=== PATIENT | female | born 1955 | race Caucasian/White ===

== ENCOUNTER 2018-06-01 17:04 | Inpatient (IN) | payer OTHER ==
[2018-06-01 18:08] VITALS: BMI 23.7
--- NOTE | 2018-06-01 20:56 | HP ---
COWS - Scale Resting Pulse: 0= [place] 80 or Below Sweatin=Flushed/Facial Moisture Restless Observation: 1= Difficult to Sit Still Pupil Size: 5= Only Rim of [place] Seen (Pupils = 10 mm) Bone or Joint Aches: 1= Mild Discomfort (Increased r/t withdrawal) Runny Nose/ Eye Tearin= Runny Nose/Eyes GI Upset > 30mins: 0= None Tremor Observation: 2= Slight Tremor Visible Yawning Observation: 1= 1-2x During Session Anxiety or Irritability: 2=Irritable/Anxious Goose Flesh Skin: 0=Smooth Skin COWS Score: 16 CIWA Score - Admission Criteria [facility] Guidelines: Admission for Medically Managed Detox: Requires at least one of the followin. CIWA greater than 12 2. Seizures within the past 24 hours 3. Delirium tremens within the past 24 hours 4. Hallucinations within the past 24 hours 5. Acute intervention needed for co occurring medical disorder 6. Acute intervention needed for co occurring psychiatric disorder 7. Severe withdrawal that cannot be handled at a lower level of care (continued vomiting, continued diarrhea, abnormal vital signs) requiring intravenous medication and/or fluids 8. Admission ROS [facility] Chief Complaint: Having withdrawal from opiates. Allergies/Adverse Reactions: Allergies Allergy/AdvReac Type Severity Reaction Status Date / Time ampicillin Allergy Verified 06/01/18 22:44 azithromycin Allergy Verified 06/01/18 22:44 Penicillins Allergy Verified 06/01/18 22:44 History of Present Illness: Here for heroin detox. Has been receiving opiate pain relievers off and on since age 14. (Nothing since [age]) Started heroin at age 37. Has been starting and stopping over the years. Hx of seizures. Cause of seizures are unknown and not on any seizure medication. Hx: overdose in 2018. Denies alcohol or beer. Hx Asthma (denies recent exacerbation) and COPD. Chronic back and hip pain. Uses a cane for support. (L) knee pain r/t recent fall. On prescription alprazolam for anxiety/panic disorder. Alprazolam is not available, so will order Valium 2.5 mg PO BID. Patient Name: Chani Roberts Date: 1955 Address: [address] [place] [address] Sex: Female Rx Written Rx Dispensed Drug Quantity Days Supply Prescriber Name 05/28/2018 05/30/2018 alprazolam 1 mg tablet 60 30 MD Latanya, Srini 04/30/2018 05/02/2018 alprazolam 1 mg tablet 60 30 MD Latanya, Srini 04/02/2018 04/02/2018 alprazolam 1 mg tablet 60 30 MD Latanya, Srini 03/05/2018 03/05/2018 alprazolam 1 mg tablet 60 30 MD Latanya, Srini 02/21/2018 02/21/2018 oxycodone-acetaminophen 10-325 mg tab 12 3 Stephen Sandoval 01/21/2018 01/21/2018 oxycodone-acetaminophen 10-325 mg tab 12 3 Stephen Sandoval DDS 01/20/2018 01/20/2018 alprazolam 1 mg tablet 60 30 MD Latanya, Srini 12/11/2017 12/11/2017 alprazolam 1 mg tablet 60 30 MD Latanya, Srini 11/06/2017 11/06/2017 alprazolam 1 mg tablet 60 30 MD Latanya, Srini 10/01/2017 10/01/2017 alprazolam 1 mg tablet 60 30 MD Latanya, Srini Exam Limitations: No Limitations - Ebola screening Have you traveled outside of the country in the last 21 days: No (N) Have you had contact with anyone from an Ebola affected area: No Have you been sick,other than usual withdrawal symptoms: No Do you have a fever: No - Review of Systems Constitutional: Diaphoresis EENT: reports: Blurred Vision, Dental Problems (Recent dental implants and tooth removal. Has an appointment for early June. Taking Ibuprofen for pain.) Respiratory: reports: SOB with Exertion, Other (Hx Asthma and COPD - denies recent exacerbation) Cardiac: reports: Other (Hx murmur) : reports: No Symptoms Reported Musculoskeletal: reports: Back Pain (Consistent back pain, multiple areas; sometimes sharp, dull, or achy. Pain at this time is a "3".), Joint Pain ( Chronic arthritic hip pain usually dull. (R) hip is worse than (L). Uses a cane. ), Other ((L) knee pain r/t fall 2 weeks ago. States was examined in ER and had an xray which was negative) Integumentary: reports: No Symptoms Reported (States bruises easily.) Neuro: reports: Headache, Numbness (fingers both hands), Seizure (None recently. ), Tremors Endocrine: reports: No Symptoms Reported Hematology: reports: Easy Bruising Psychiatric: reports: Judgement Intact, Orientated x3, Agitated, Anxious, Depressed (Denies thoughts of harming self or others.) Patient History - PPD History Previous Implant?: Yes (years ago) Documented Results: Negative w/o proof Implanted On Prior R Admission?: No PPD to be Administered?: Yes - Smoking Cessation Smoking history: Current every day smoker Have you smoked in the past 12 months: Yes Aproximately how many cigarettes per day: 4 Hx Chewing Tobacco Use: No Initiated information on smoking cessation: Yes 'Breaking Loose' booklet given: 06/01/18 - Substance & Tx. History Hx Substance Use: Yes Substance Use Type: Heroin Hx Substance Use Treatment: No (Received treatment in an ER but has tried detoxing on own) - Substances Abused Heroin Route: SNIFF Frequency: Daily Amount used: 3 BAGS Age of first use: 32 Admission Physical Exam S - Vital Signs Vital Signs: Vital Signs - 24 hr 06/01/18 18:06 Temperature 97.7 F Pulse Rate 79 Respiratory 18 Rate Blood Pressure 111/74 - Physical General Appearance: Yes: Nourished, Appropriately Dressed, Tremorous, Sweating, Anxious HEENTM: Yes: EOMI, Hearing grossly Normal, Normocephalic, STEVE (Pupils = 10 mm) , Pharynx Normal, Rhinorrhea Respiratory: Yes: Lungs Clear, Normal Breath Sounds, No Respiratory Distress Neck: Yes: No masses,lesions,Nodules, Supple Breast: Yes: Breast Exam Deferred Cardiology: Yes: Regular Rhythm, Regular Rate, S1, S2, Murmur (Soft murmur noted. No SOB, edema.) Abdominal: Yes: Non Tender, Flat, Soft, Increased Bowel Sounds Genitourinary: Yes: Within Normal Limits Back: Yes: Other (Curvatures of spine) Musculoskeletal: Yes: Gait Steady (w/ use of cane) Extremities: Yes: Normal Capillary Refill, Normal Range of Motion, Non-Tender, Tremors Neurological: Yes: backup administrator II-XII NML intact, Fully Oriented, Alert, Motor Strength 5/5, Normal Response Integumentary: Yes: Normal Color, Dry, Warm Lymphatic: Yes: Within Normal Limits - Diagnostic (1) Opioid dependence with withdrawal Current Visit: Yes Status: Acute (2) Bone pain Current Visit: Yes Status: Chronic (3) JESSENIA (generalized anxiety disorder) Current Visit: Yes Status: Chronic Comment: On prescribed alprazolam. (4) Nicotine dependence, uncomplicated Current Visit: Yes Status: Chronic Qualifiers: Nicotine product type: cigarettes Qualified Code(s): F17.210 - Nicotine dependence, cigarettes, uncomplicated (5) COPD (chronic obstructive pulmonary disease) Current Visit: Yes Status: Chronic Qualifiers: COPD type: unspecified COPD Qualified Code(s): J44.9 - Chronic obstructive pulmonary disease, unspecified (6) Murmur, cardiac Current Visit: Yes Status: Acute Cleared for Admission [facility] - Detox or Rehab [facility] Level of Care: Medically Managed Detox Regimen/Protocol: Methadone [facility] Breath Alcohol Content Breath Alcohol Content: 0 Urine Pregancy Test - Result Urine Test Results: Negative- NO Line Present Urine Drug Screen - Results Drug Screen Negative: No Urine Drug Screen Results: THC-Marijuana, OPI-Opiates, BAR-Barbiturates, BZO- Benzodiazepines, OXY-Oxycodone
[2018-06-01] MEDS ORDERED: METHADONE HCL 10 MG TABLET (FOR DETOX USE ONLY) PO ONE ×2 (21:30→23:00)
[2018-06-01] MEDS ORDERED: ACETAMINOPHEN 325 MG TABLET (FP) PO PRN (21:30)
[2018-06-01] MEDS ORDERED: NICOTINE POLACRILEX 2 MG GUM BC PRN (21:30)
[2018-06-01] MEDS ORDERED: MAGNESIUM HYDROX 2400MG/30ML ORAL SUSPENSION 30 ML CUP PO PRN (21:30)
[2018-06-01] MEDS ORDERED: MAGNESIUM CITRATE 300 ML BOTTLE PO PRN (21:30)
[2018-06-01] MEDS ORDERED: MENTHOL/PHENOL 1 EACH UD MM PRN (21:30)
[2018-06-01] MEDS ORDERED: MAG HYDROX/AL HYDROX/SIMETH 30 ML UNIT-DOSE CUP PO PRN (21:30)
[2018-06-01] MEDS ORDERED: LOPERAMIDE HCL 2 MG CAPSULE PO PRN (21:30)
[2018-06-01] MEDS ORDERED: ALPRAZolam 0.25 MG TABLET PO SCH (22:00)
[2018-06-01] MEDS ORDERED: PATIENT'S OWN MEDICATION (NON-FORMULARY) (Alprazolam [Xanax] 1 MG) PO SCH (22:45)
[2018-06-01] MEDS: THIAMINE HCL 100 MG TABLET (FP) PO SCH (23:04)
[2018-06-01] MEDS: diazePAM 5 MG TABLET PO SCH (23:16)
[2018-06-02 01:49] LABS: URINE APPEARANCE CLEAR; URINE BILIRUBIN NEGATIVE (<2.0 mg/dL); URINE COLOR DKYELLOW; URINE GLUCOSE (UA) NEGATIVE (NEGATIVE); URINE KETONE TRACE (NEGATIVE); URINE LEUK ESTERASE 1+ (NEGATIVE); URINE NITRITE NEGATIVE (NEGATIVE); URINE PROTEIN NEGATIVE (NEGATIVE)
[2018-06-02 01:56] LABS: EPI CELLS RARE /HPF (FEW); URINE BACTERIA RARE /hpf (NONE SEEN); URINE HYALINE CAST 1 /lpf; URINE MUCUS RARE
[2018-06-02] MEDS: IBUPROFEN 400 MG TABLET (FP) PO PRN (08:35)
[2018-06-02] MEDS ORDERED: METHADONE HCL 10 MG TABLET (FOR DETOX USE ONLY) PO ONE (10:00)
[2018-06-02] MEDS: PRENATAL VITAMINS W/ FOLIC ACID TABLET (FP) PO SCH (10:37)
[2018-06-02] MEDS: diazePAM 5 MG TABLET PO SCH ×2 (10:37→22:20)
[2018-06-02] MEDS: NICOTINE 7 MG/24 HOURS TOPICAL PATCH TD SCH (10:42)
[2018-06-02 11:03] LABS: HEMATOCRIT 42.1 % (32.4-45.2); HEMOGLOBIN 14.9 GM/dL (10.7-15.3); MCH 31.6 pg (25.7-33.7); MCHC 35.3 g/dl (32.0-36.0); MEAN CELL VOLUME 89.4 fl (80-96); MEAN PLT VOLUME 9.6 fl (7.5-11.1); PLATELET COUNT 222 K/MM3 (134-434); RBC 4.72 M/mm3 (3.60-5.2); RDW 12.6 % (11.6-15.6); WHITE BLOOD COUNT 5.1 K/mm3 (4.0-10.0)
[2018-06-02 11:22] LABS: ALBUMIN 3.5 g/dl (3.4-5.0); ALK PHOS 57 U/L (45-117); ANION GAP 5 MMOL/L (8-16); BILIRUBIN,TOTAL 0.8 mg/dL (0.2-1); BLOOD UREA NITROGEN 18 mg/dL (7-18); CALCIUM 8.6 mg/dL (8.5-10.1); CHLORIDE 107 mmol/L (98-107); CO2 29 mmol/L (21-32); CREATININE 0.9 mg/dL (0.55-1.3); GLUCOSE,RANDOM 96 mg/dL (74-106); SGOT/AST 19 U/L (15-37); SGPT/ALT 23 U/L (13-61); SODIUM 141 mmol/L (136-145); TOT PROT 6.4 g/dl (6.4-8.2)
--- NOTE | 2018-06-02 12:39 | PN ---
[facility] COWS - Scale Resting Pulse: 1= [place] 81-100 Sweatin=Flushed/Facial Moisture Restless Observation: 1= Difficult to Sit Still Pupil Size: 0= Normal to Room Light Bone or Joint Aches: 2= Severe Diffuse Aches Runny Nose/ Eye Tearin= Nasal Congestion GI Upset > 30mins: 2= Nausea/Diarrhea Tremor Observation of Outstretched Hands: 2= Slight Tremor Visible Yawning Observation: 2= >3x During Session Anxiety or Irritability: 2=Irritable/Anxious Goose Flesh Skin: 0=Smooth Skin COWS Score: 15 BHS Progress Note (SOAP) Subjective: sweats shakes interrupted sleep body aches nausea Objective: 06/02/18 12:51 Vital Signs Temperature 98.2 F 06/02/18 10:02 Pulse Rate 77 06/02/18 10:02 Respiratory Rate 18 06/02/18 10:02 Blood Pressure 129/78 06/02/18 10:02 O2 Sat by Pulse Oximetry (%) Laboratory Tests 06/01/18 06/02/18 06/02/18 22:25 07:00 07:00 WBC 5.1 RBC 4.72 Hgb 14.9 Hct 42.1 MCV 89.4 MCH 31.6 MCHC 35.3 RDW 12.6 Plt Count 222 MPV 9.6 Sodium 141 Potassium 4.0 Chloride 107 Carbon Dioxide 29 Anion Gap 5 L BUN 18 Creatinine 0.9 Creat Clearance w eGFR > 60 Random Glucose 96 Calcium 8.6 Total Bilirubin 0.8 AST 19 ALT 23 Alkaline Phosphatase 57 Total Protein 6.4 Albumin 3.5 Urine Color Dkyellow Urine Appearance Clear Urine pH 5.0 Ur Specific [place] 1.027 Urine Protein Negative Urine Glucose (UA) Negative Urine Ketones Trace H Urine Blood Negative Urine Nitrite Negative Urine Bilirubin Negative Urine Urobilinogen 2.0 H Ur Leukocyte Esterase 1+ H Urine WBC (Auto) 2 Urine RBC (Auto) 2 Ur Epithelial Cells Rare Urine Bacteria Rare Hyaline Casts 1 Urine Mucus Rare RPR Titer 06/02/18 07:00 WBC RBC Hgb Hct MCV MCH MCHC RDW Plt Count MPV Sodium Potassium Chloride Carbon Dioxide Anion Gap BUN Creatinine Creat Clearance w eGFR Random Glucose Calcium Total Bilirubin AST ALT Alkaline Phosphatase Total Protein Albumin Urine Color Urine Appearance Urine pH Ur Specific [place] Urine Protein Urine Glucose (UA) Urine Ketones Urine Blood Urine Nitrite Urine Bilirubin Urine Urobilinogen Ur Leukocyte Esterase Urine WBC (Auto) Urine RBC (Auto) Ur Epithelial Cells Urine Bacteria Hyaline Casts Urine Mucus RPR Titer Nonreactive aaox3 ambulating no acute distress Assessment: 06/02/18 12:51 withdrawal sx Plan: continue detox increase fluids tigan po prn
[2018-06-02] MEDS ORDERED: P-EPHED 60MG/TRIPROLIDI 2.5MG TABLET PO ONE (15:05)
--- NOTE | 2018-06-02 15:24 | PN ---
[facility] Progress Note Note: stuffy nose elevated bp begin claritin + [place]
[2018-06-02] MEDS ORDERED: LORATADINE 10 MG TABLET PO ONE (15:45)
[2018-06-02] MEDS: SODIUM CHLORIDE NASAL SPRAY 44 ML BOTTLE NS SCH ×2 (15:59→22:20)
[2018-06-02] MEDS: ONDANSETRON *ODT* 4 MG TABLET SL PRN (21:27)
[2018-06-02] MEDS: MELATONIN 5 MG TABLETS PO PRN (22:21)
[2018-06-02] MEDS: THIAMINE HCL 100 MG TABLET (FP) PO SCH (22:21)
[2018-06-03] MEDS: SODIUM CHLORIDE NASAL SPRAY 44 ML BOTTLE NS SCH ×3 (06:05→22:34)
[2018-06-03] MEDS: IBUPROFEN 400 MG TABLET (FP) PO PRN (06:09)
[2018-06-03] MEDS ORDERED: cloNIDine HCL 0.1 MG TABLET PO ONE (06:15)
--- NOTE | 2018-06-03 06:18 | PN ---
[facility] Progress Note Note: Patient's blood pressure this morning is B/P 172/109. Patient is asymptomatic Vital Signs Temperature 98.4 F 06/02/18 21:39 Pulse Rate 92 H 06/03/18 06:06 Respiratory Rate 20 06/03/18 06:06 Blood Pressure 172/109 H 06/03/18 06:06 O2 Sat by Pulse Oximetry (%) Action: Clonidine 0.1mg tablet oral ordered
[2018-06-03] MEDS: ONDANSETRON *ODT* 4 MG TABLET SL PRN ×2 (08:36→14:25)
[2018-06-03] MEDS ORDERED: LISINOPRIL 20 MG TABLET (FP) PO ONE (08:37)
[2018-06-03] MEDS ORDERED: ACETAMINOPHEN 325 MG TABLET (FP) PO PRN (08:40)
[2018-06-03] MEDS: cloNIDine HCL 0.1 MG TABLET PO SCH ×2 (09:00→22:23)
[2018-06-03] MEDS ORDERED: TRIMETHOBENZAMIDE HCL 200MG/2ML INJ IM ONE (09:42)
[2018-06-03] MEDS: NICOTINE 7 MG/24 HOURS TOPICAL PATCH TD SCH (10:58)
[2018-06-03] MEDS: PRENATAL VITAMINS W/ FOLIC ACID TABLET (FP) PO SCH ×2 (10:58→13:04)
[2018-06-03] MEDS: METHADONE HCL 5 MG TABLET (FOR DETOX USE ONLY) PO ONE ×2 (10:58→13:05)
[2018-06-03] MEDS: diazePAM 5 MG TABLET PO SCH ×2 (10:58→13:04)
--- NOTE | 2018-06-03 11:24 | PN ---
[facility] COWS - Scale Resting Pulse: 1= [place] 81-100 Sweatin=Flushed/Facial Moisture Restless Observation: 1= Difficult to Sit Still Pupil Size: 0= Normal to Room Light Bone or Joint Aches: 2= Severe Diffuse Aches Runny Nose/ Eye Tearin= Runny Nose/Eyes GI Upset > 30mins: 3= Vomiting/Diarrhea Tremor Observation of Outstretched Hands: 2= Slight Tremor Visible Yawning Observation: 2= >3x During Session Anxiety or Irritability: 1=Feels Anxious/Irritable Goose Flesh Skin: 0=Smooth Skin COWS Score: 16 BHS Progress Note (SOAP) Subjective: sweats chills shakes body aches interrupted sleep nasal congestion agitation Objective: 06/03/18 11:25 Vital Signs Temperature 98.6 F 06/03/18 09:15 Pulse Rate 94 H 06/03/18 09:15 Respiratory Rate 20 06/03/18 09:15 Blood Pressure 162/100 06/03/18 09:15 O2 Sat by Pulse Oximetry (%) Laboratory Tests 06/01/18 06/02/18 06/02/18 22:25 07:00 07:00 WBC 5.1 RBC 4.72 Hgb 14.9 Hct 42.1 MCV 89.4 MCH 31.6 MCHC 35.3 RDW 12.6 Plt Count 222 MPV 9.6 Sodium 141 Potassium 4.0 Chloride 107 Carbon Dioxide 29 Anion Gap 5 L BUN 18 Creatinine 0.9 Creat Clearance w eGFR > 60 Random Glucose 96 Calcium 8.6 Total Bilirubin 0.8 AST 19 ALT 23 Alkaline Phosphatase 57 Total Protein 6.4 Albumin 3.5 Urine Color Dkyellow Urine Appearance Clear Urine pH 5.0 Ur Specific [place] 1.027 Urine Protein Negative Urine Glucose (UA) Negative Urine Ketones Trace H Urine Blood Negative Urine Nitrite Negative Urine Bilirubin Negative Urine Urobilinogen 2.0 H Ur Leukocyte Esterase 1+ H Urine WBC (Auto) 2 Urine RBC (Auto) 2 Ur Epithelial Cells Rare Urine Bacteria Rare Hyaline Casts 1 Urine Mucus Rare RPR Titer 06/02/18 07:00 WBC RBC Hgb Hct MCV MCH MCHC RDW Plt Count MPV Sodium Potassium Chloride Carbon Dioxide Anion Gap BUN Creatinine Creat Clearance w eGFR Random Glucose Calcium Total Bilirubin AST ALT Alkaline Phosphatase Total Protein Albumin Urine Color Urine Appearance Urine pH Ur Specific [place] Urine Protein Urine Glucose (UA) Urine Ketones Urine Blood Urine Nitrite Urine Bilirubin Urine Urobilinogen Ur Leukocyte Esterase Urine WBC (Auto) Urine RBC (Auto) Ur Epithelial Cells Urine Bacteria Hyaline Casts Urine Mucus RPR Titer Nonreactive aaox3 ambulating no acute distress Assessment: 06/03/18 11:25 withdrawals sx Plan: continue detox increase fluids clonidine 0.1mg bid with parameters ordered HTN medication ordered continue BP monitoring
[2018-06-03] MEDS ORDERED: METHADONE DETOX 10 MG/1 ML [20ML VIAL] IM ONE (12:56)
[2018-06-03] MEDS: TRIMETHOBENZAMIDE HCL 200MG/2ML INJ IM PRN (14:40)
--- NOTE | 2018-06-03 15:22 | PN ---
S Progress Note Note: pt is vomiting and heaving. pt will continue with tigan IM. reglan 10mg scheduled. pt agreed if she still feels nausea, heaving and vomiting pt will go to our main hospital for evaluation continue to monitor.
[2018-06-03] MEDS ORDERED: diazePAM 5 MG TABLET PO ONE (17:02)
[2018-06-03] MEDS: METOCLOPRAMIDE HCL 10 MG TABLET (FP) PO SCH ×2 (17:11→22:36)
[2018-06-03] MEDS ORDERED: LORazepam 2 MG/ML SDV VIAL IM ONE (17:45)
[2018-06-03] MEDS ORDERED: diazePAM 5 MG TABLET PO SCH (21:30)
[2018-06-03] MEDS: IBUPROFEN 600 MG TABLET (FP) PO PRN (22:24)
[2018-06-03] MEDS: MELATONIN 5 MG TABLETS PO PRN (22:24)
[2018-06-03] MEDS: THIAMINE HCL 100 MG TABLET (FP) PO SCH (22:24)
--- NOTE | 2018-06-03 23:53 | PN ---
[facility] Progress Note Note: Patient withdrawal symptoms may be r/t anxiolytic withdrawal, as patient was on Xanax 1 mg PO BID, for an extended period, prior to admission. Valium 2.5 mg was not alleviating withdrawal symptoms. Patient w/ severe nausea, vomiting and gross tremors. Given Ativan 2 mg IM earlier and patient was able to have temporary relief of withdrawal symptoms. Plan: D/C Valium 2.5 mg. Valium 5 mg PO Q6H changed to Q8H.
[2018-06-04] MEDS ORDERED: hydrOXYzine PAMOATE 50 MG CAPSULE (FP) PO ONE (02:20)
[2018-06-04] MEDS: TRIMETHOBENZAMIDE HCL 200MG/2ML INJ IM PRN (02:21)
[2018-06-04] MEDS: diazePAM 5 MG TABLET PO SCH ×3 (06:16→22:42)
[2018-06-04] MEDS: METOCLOPRAMIDE HCL 10 MG TABLET (FP) PO SCH ×4 (06:16→23:18)
[2018-06-04] MEDS: SODIUM CHLORIDE NASAL SPRAY 44 ML BOTTLE NS SCH ×3 (06:28→23:14)
[2018-06-04] MEDS ORDERED: METHADONE HCL 5 MG TABLET (FOR DETOX USE ONLY) PO ONE (10:00)
[2018-06-04] MEDS: PRENATAL VITAMINS W/ FOLIC ACID TABLET (FP) PO SCH (11:39)
[2018-06-04] MEDS: LISINOPRIL 20 MG TABLET (FP) PO SCH ×2 (11:39→22:42)
[2018-06-04] MEDS: NICOTINE 7 MG/24 HOURS TOPICAL PATCH TD SCH (11:40)
[2018-06-04] MEDS: cloNIDine HCL 0.1 MG TABLET PO SCH ×2 (11:42→22:42)
--- NOTE | 2018-06-04 13:28 | EKG ---
Test Reason : Blood Pressure : / mmHG Vent. Rate : 097 BPM Atrial Rate : 097 BPM P-R Int : 148 ms QRS Dur : 082 ms QT Int : 368 ms P-R-T Axes : 080 262 078 degrees QTc Int : 467 ms NORMAL SINUS RHYTHM RIGHT ATRIAL ENLARGEMENT RIGHT SUPERIOR AXIS DEVIATION PULMONARY DISEASE PATTERN ABNORMAL ECG NO PREVIOUS ECGS AVAILABLE Confirmed by ELKE BECK MD ([id number]) on 06/04/2018 1:28:27 PM Referred By: Confirmed By:ELKE BECK MD
--- NOTE | 2018-06-04 14:25 | PN ---
BHS COWS - Scale Resting Pulse: 1= [place] 81-100 Sweatin=Flushed/Facial Moisture Restless Observation: 0= Sits Still Pupil Size: 1= Pupils >than Normal Bone or Joint Aches: 1= Mild Discomfort Runny Nose/ Eye Tearin= None GI Upset > 30mins: 3= Vomiting/Diarrhea Tremor Observation of Outstretched Hands: 2= Slight Tremor Visible Yawning Observation: 0= None Anxiety or Irritability: 1=Feels Anxious/Irritable Goose Flesh Skin: 0=Smooth Skin COWS Score: 11 S Progress Note (SOAP) Subjective: PATIENT CONTINUES TO HAVE NAUSEA, VOMITING (VERY LITTLE AMOUNT OF BILE) AND TREMORS. PATIENT ALSO STATES SHE FEELS DIZZY WHICH OCCURS WHEN SHE "KICKS". Objective: 06/04/18 14:22 Vital Signs Temperature 97.9 F 06/04/18 14:00 Pulse Rate 83 06/04/18 14:00 Respiratory Rate 18 06/04/18 14:00 Blood Pressure 142/78 06/04/18 14:00 O2 Sat by Pulse Oximetry (%) Laboratory Tests 06/01/18 06/02/18 06/02/18 22:25 07:00 07:00 WBC 5.1 RBC 4.72 Hgb 14.9 Hct 42.1 MCV 89.4 MCH 31.6 MCHC 35.3 RDW 12.6 Plt Count 222 MPV 9.6 Sodium 141 Potassium 4.0 Chloride 107 Carbon Dioxide 29 Anion Gap 5 L BUN 18 Creatinine 0.9 Creat Clearance w eGFR > 60 Random Glucose 96 Calcium 8.6 Total Bilirubin 0.8 AST 19 ALT 23 Alkaline Phosphatase 57 Total Protein 6.4 Albumin 3.5 Urine Color Dkyellow Urine Appearance Clear Urine pH 5.0 Ur Specific [place] 1.027 Urine Protein Negative Urine Glucose (UA) Negative Urine Ketones Trace H Urine Blood Negative Urine Nitrite Negative Urine Bilirubin Negative Urine Urobilinogen 2.0 H Ur Leukocyte Esterase 1+ H Urine WBC (Auto) 2 Urine RBC (Auto) 2 Ur Epithelial Cells Rare Urine Bacteria Rare Hyaline Casts 1 Urine Mucus Rare RPR Titer 06/02/18 07:00 WBC RBC Hgb Hct MCV MCH MCHC RDW Plt Count MPV Sodium Potassium Chloride Carbon Dioxide Anion Gap BUN Creatinine Creat Clearance w eGFR Random Glucose Calcium Total Bilirubin AST ALT Alkaline Phosphatase Total Protein Albumin Urine Color Urine Appearance Urine pH Ur Specific [place] Urine Protein Urine Glucose (UA) Urine Ketones Urine Blood Urine Nitrite Urine Bilirubin Urine Urobilinogen Ur Leukocyte Esterase Urine WBC (Auto) Urine RBC (Auto) Ur Epithelial Cells Urine Bacteria Hyaline Casts Urine Mucus RPR Titer Nonreactive PE: ALERT AND ORIENTED X 3 SKIN COLOR WARM, +FACIAL MOISTURE CAR S1S2 RESP CTA BL, NO RALES, WHEEZING EXT NO EDEMA, +TREMORS +ANXIETY Assessment: 06/04/18 14:23 WITHDRAWAL SX Plan: CONTINUE DETOX-HOLD MTD AND VALIUM FOR LETHARGY CONTINUE TIGAN FOR NAUSEA ENSURE ADDED TO DIET ADD MECLIZINE 12.5MG Q12 HR PRN FOR DIZZINESS CONTINUE TO MONITOR CLINICALLY
[2018-06-04] MEDS: THIAMINE HCL 100 MG TABLET (FP) PO SCH (22:41)
[2018-06-04] MEDS: IBUPROFEN 600 MG TABLET (FP) PO PRN (22:42)
[2018-06-04] MEDS: MELATONIN 5 MG TABLETS PO PRN (22:44)
[2018-06-05] MEDS: METOCLOPRAMIDE HCL 10 MG TABLET (FP) PO SCH ×4 (06:11→23:04)
[2018-06-05] MEDS: diazePAM 5 MG TABLET PO SCH ×3 (06:11→23:04)
[2018-06-05] MEDS: SODIUM CHLORIDE NASAL SPRAY 44 ML BOTTLE NS SCH ×3 (06:59→23:04)
--- NOTE | 2018-06-05 09:45 | PN ---
[facility] Progress Note (SOAP) Subjective: reported taking benzo x 20 years, in terms of opiate withdrawal sx feeling better no body aches no tremor less sweat Objective: 06/05/18 12:22 Vital Signs Temperature 98.2 F 06/05/18 09:43 Pulse Rate 79 06/05/18 09:43 Respiratory Rate 18 06/05/18 09:43 Blood Pressure 139/78 06/05/18 09:43 O2 Sat by Pulse Oximetry (%) Laboratory Last Values WBC 5.1 K/mm3 (4.0-10.0) 06/02/18 07:00 RBC 4.72 M/mm3 (3.60-5.2) 06/02/18 07:00 Hgb 14.9 GM/dL (10.7-15.3) 06/02/18 07:00 Hct 42.1 % (32.4-45.2) 06/02/18 07:00 MCV 89.4 fl (80-96) 06/02/18 07:00 MCH 31.6 pg (25.7-33.7) 06/02/18 07:00 MCHC 35.3 g/dl (32.0-36.0) 06/02/18 07:00 RDW 12.6 % (11.6-15.6) 06/02/18 07:00 Plt Count 222 K/MM3 (134-434) 06/02/18 07:00 MPV 9.6 fl (7.5-11.1) 06/02/18 07:00 Sodium 141 mmol/L (136-145) 06/02/18 07:00 Potassium 4.0 mmol/L (3.5-5.1) 06/02/18 07:00 Chloride 107 mmol/L (98-107) 06/02/18 07:00 Carbon Dioxide 29 mmol/L (21-32) 06/02/18 07:00 Anion Gap 5 MMOL/L (8-16) L 06/02/18 07:00 BUN 18 mg/dL (7-18) 06/02/18 07:00 Creatinine 0.9 mg/dL (0.55-1.3) 06/02/18 07:00 Creat Clearance w eGFR > 60 (>60) 06/02/18 07:00 Random Glucose 96 mg/dL (74-106) 06/02/18 07:00 Calcium 8.6 mg/dL (8.5-10.1) 06/02/18 07:00 Total Bilirubin 0.8 mg/dL (0.2-1) 06/02/18 07:00 AST 19 U/L (15-37) 06/02/18 07:00 ALT 23 U/L (13-61) 06/02/18 07:00 Alkaline Phosphatase 57 U/L (45-117) 06/02/18 07:00 Total Protein 6.4 g/dl (6.4-8.2) 06/02/18 07:00 Albumin 3.5 g/dl (3.4-5.0) 06/02/18 07:00 Urine Color Dkyellow 06/01/18 22:25 Urine Appearance Clear 06/01/18 22:25 Urine pH 5.0 (5.0-8.0) 06/01/18 22:25 Ur Specific [place] 1.027 (1.010-1.035) 06/01/18 22:25 Urine Protein Negative (NEGATIVE) 06/01/18 22:25 Urine Glucose (UA) Negative (NEGATIVE) 06/01/18 22:25 Urine Ketones Trace (NEGATIVE) H 06/01/18 22:25 Urine Blood Negative (NEGATIVE) 06/01/18 22:25 Urine Nitrite Negative (NEGATIVE) 06/01/18 22:25 Urine Bilirubin Negative (<2.0 mg/dL) 06/01/18 22:25 Urine Urobilinogen 2.0 mg/dL (0.2-1.0) H 06/01/18 22:25 Ur Leukocyte Esterase 1+ (NEGATIVE) H 06/01/18 22:25 Urine WBC (Auto) 2 /hpf (3-5) 06/01/18 22:25 Urine RBC (Auto) 2 /hpf (0-3) 06/01/18 22:25 Ur Epithelial Cells Rare /HPF (FEW) 06/01/18 22:25 Urine Bacteria Rare /hpf (NONE SEEN) 06/01/18 22:25 Hyaline Casts 1 /lpf 06/01/18 22:25 Urine Mucus Rare 06/01/18 22:25 RPR Titer Nonreactive (NONREACTIVE) 06/02/18 07:00 lab noted Assessment: 06/05/18 12:22 mild withdrawal sx 06/05/18 12:22 ambulate with cane Plan: medically supervised detox
[2018-06-05] MEDS ORDERED: METHADONE HCL 10 MG TABLET (FOR DETOX USE ONLY) PO ONE (10:00)
[2018-06-05] MEDS: cloNIDine HCL 0.1 MG TABLET PO SCH ×2 (10:46→23:07)
[2018-06-05] MEDS: NICOTINE 7 MG/24 HOURS TOPICAL PATCH TD SCH (10:46)
[2018-06-05] MEDS: PRENATAL VITAMINS W/ FOLIC ACID TABLET (FP) PO SCH (10:47)
[2018-06-05] MEDS: LISINOPRIL 20 MG TABLET (FP) PO SCH ×2 (10:47→23:10)
--- NOTE | 2018-06-05 21:38 | PN ---
[facility] Progress Note Note: MD'S NOTE: INFORMED AT ABOUT 9:15PM THAT THE PT. FEEL ON RT. SIDE OF THE LOWER LIMB AND ON TO THE FLOOR SUB: DENIES ANY INJURY, PAIN OR HITTING THE HEAD OBJ: THE PT. IS SLEEPY BUT CARPIO X 3 UPON AWAKENING NOT DYSPNEIC, NOT IN DISTRESS. L/E: RT. LOWER LIMB: NO VISIBLE INJURIES NOTED NO TENDERNESS NOTED MOVEMENTS ARE SATISFACTORY NO EVIDENCE OF FX'S NOTED AT THIS TIME NO OTHER VISIBLE INJURIES NOTED ELSEWHERE IMPRESSION: ACCIDENTAL FALL - APPARENTLY WITHOUT ANY INJURIES PLANS: OBSERVATION WITH FALL PRECAUTIONS WILL F/U: NEEDED PROVIDER: MARTHA AMANDA MD
[2018-06-05] MEDS: IBUPROFEN 600 MG TABLET (FP) PO PRN (23:04)
[2018-06-05] MEDS: THIAMINE HCL 100 MG TABLET (FP) PO SCH (23:24)
[2018-06-06] MEDS ORDERED: METHADONE HCL 5 MG TABLET (FOR DETOX USE ONLY) PO ONE (06:00)
[2018-06-06] MEDS: diazePAM 5 MG TABLET PO SCH (06:21)
[2018-06-06] MEDS: METOCLOPRAMIDE HCL 10 MG TABLET (FP) PO SCH (06:21)
[2018-06-06] MEDS: SODIUM CHLORIDE NASAL SPRAY 44 ML BOTTLE NS SCH (06:22)
--- NOTE | 2018-06-06 09:00 | DS ---
[facility] Detox Discharge Summary Admission Date: 06/01/18 Discharge Date: 06/06/18 - History Present History: Opioid Dependence, Sedative Dependence - Physical Exam Results Vital Signs: Vital Signs Temperature 97.5 F L 06/06/18 07:21 Pulse Rate 76 06/06/18 07:21 Respiratory Rate 16 06/06/18 07:21 Blood Pressure 112/76 06/06/18 07:21 O2 Sat by Pulse Oximetry (%) - Treatment Hospital Course: Detox Protocol Followed, Detoxed Safely, Responded well, Discharged Condition Good, Rehab Referral Accepted - Medication Discharge Medications: Ambulatory Orders Alprazolam [Xanax] 1 mg PO BID 06/01/18 Bupropion HCl [Wellbutrin Xl -] 300 mg PO DAILY 06/01/18 Lisinopril [Prinivil] 20 mg PO BID #60 tablet 06/05/18 - Diagnosis (1) Murmur, cardiac Current Visit: Yes Status: Acute (2) Opioid dependence with withdrawal Current Visit: Yes Status: Chronic (3) Bone pain Current Visit: Yes Status: Chronic (4) COPD (chronic obstructive pulmonary disease) Current Visit: Yes Status: Chronic Qualifiers: COPD type: unspecified COPD Qualified Code(s): J44.9 - Chronic obstructive pulmonary disease, unspecified (5) JESSENIA (generalized anxiety disorder) Current Visit: Yes Status: Chronic (6) Nicotine dependence, uncomplicated Current Visit: Yes Status: Chronic Qualifiers: Nicotine product type: cigarettes Qualified Code(s): F17.210 - Nicotine dependence, cigarettes, uncomplicated (7) Sedative dependence with current use Current Visit: Yes Status: Chronic - AMA Did Patient Leave Against Medical Advice: No (declined rehab; referred to her PCP if necessary)
[2018-06-06 09:35] VITALS: BP 121/79; PULSE 81; TEMP 97
[2018-06-06] MEDS: NICOTINE 7 MG/24 HOURS TOPICAL PATCH TD SCH (09:49)
[2018-06-06] MEDS: cloNIDine HCL 0.1 MG TABLET PO SCH (09:49)
[2018-06-06] MEDS: PRENATAL VITAMINS W/ FOLIC ACID TABLET (FP) PO SCH (09:49)
== END 2018-06-06 09:52 | disposition home or self-care (01) | DRG 773 ==
LOC: YASAS 17:04 → Y6N 22:04
PROC: HZ2ZZZZ Detoxification Services for Substance Abuse Treatment (ICD-10-PCS; principal; 2018-06-01)
DX: F11.23 Opioid dependence with withdrawal (principal); F13.20 Sedative, hypnotic or anxiolytic dependence, uncomplicated; F17.210 Nicotine dependence, cigarettes, uncomplicated; F41.1 Generalized anxiety disorder; R01.1 Cardiac murmur, unspecified; J44.9 Chronic obstructive pulmonary disease, unspecified; J45.909 Unspecified asthma, uncomplicated; M89.8X9 Other specified disorders of bone, unspecified site; Z88.0 Allergy status to penicillin; Z88.1 Allergy status to other antibiotic agents; Z86.69 Personal history of other diseases of the nervous system and sense organs
CPT/HCPCS: 36415; 80053; 81003; 81015; 85027; 86593; 93005; 93010; J0735; Q0162